=== PATIENT | female | born 1995 | race Caucasian/White ===

== ENCOUNTER 2024-06-08 07:30 | Emergency (ER) | payer BC, SELFPAY ==
[2024-06-08 07:32] VITALS: BP 139/89
[2024-06-08 07:43] VITALS: BMI 40.8
[2024-06-08 08:12] VITALS: BP 134/96
--- NOTE | 2024-06-08 08:18 | ED.GENMED ---
History of Present Illness
General
Chief Complaint: Breathing Problem
Source: patient
Time Seen by Provider: 06/08/24 07:50
History of Present Illness
History of Present Illness:
29-year-old female with past medical history of migraines presenting to the emergency department for evaluation of left-sided lower rib/back pain that began acutely and woke patient up from sleep bout 2-1/2 to 3 hours ago, slightly improved now but
pain is described to be an aching sensation, she with deep inspiration, worse when laying flat with no other symptoms. Patient notes that about a month ago she had COVID and since that time is still noting some fatigue and occasional shortness of
breath. She denies any fevers, chills, rigors, diaphoresis, exertional dyspnea, orthopnea, lower extremity edema, cough, hemoptysis or any other concerns. Patient does take a daily oral contraceptive. Denies cigarettes or tobacco use. Family
history noncontributory.
Past History
Past History
ED Past Medical History: Psychiatric and Other (Migraines)
ED Past Surgical History: None
Social History
Tobacco: Non-smoker
Alcohol: None
Drug: None
Personal:
Living: with family
Employment: Employed
Review of Systems
Review of Systems
All Other Systems: ROS reviewed and negative except as documented in HPI and ROS
Phy Exam
Physical Exam
Physical Exam:
GENERAL: Alert , in no apparent distress
HEAD: NCAT
EYE: clear conjunctiva
NECK: Supple.
ENT: mmm.
CARDIAC: HR between 98-110bpm, regular, no murmur
LUNGS: Clear breath sounds bilaterally, no acute respiratory distress, no wheezes/rales/rhonchi
ABDOMEN: Soft, without focal tenderness, no r/g, no cvat
NEUROLOGICAL: Alert and oriented
SKIN: Warm and dry, skin intact.
MUSCULOSKELETAL: No edema, well perfused.
PSYCH: Normal and appropriate interaction.
Scores
Heart Failure Risk
Heart Failure Risk Score: Not Applicable
Heart Score for Chest Pain Patients
STEMI patient?: No
History: Slightly or Non-Suspicious
ECG: Normal
Age: </= 45 years
Risk Factors: No Risk Factors
Troponin: </= Normal Limit
Heart Score for Chest Pain Patients: 0
Heart Score Risk: 2.5% MACE over next 6 weeks
Withdrawal Assessment of Alcohol
Withdrawal Assessment Completed?: Not applicable
Course
Orders/Labs/Results
Orders:
Orders
06/08/24 07:59
Test Result ONCE
06/08/24 08:00
Electrocardiogram (*1) Urgent
Reason for Study: Chest Pain
CT Chest Pe Study Urgent
Comment:
Reason For Exam: pleurisy, recent covid, tachy
EKG- Treatment ONCE
06/08/24 09:02
Urinalysis Reflex To Culture Urgent
Date Specimen was Collected: 06/08/24
Time Specimen was Collected: 08:55
06/08/24 09:04
Complete Blood Count/With Diff Urgent
06/08/24 09:07
Basic Metabolic Panel Urgent
HCG, Serum Qualitative Screen Urgent
Lipase Urgent
06/08/24 09:23
Troponin I Urgent
Abnormal Lab Results
06/08/24
09:04
WBC 11.3 H 10^3/uL
(4.8-10.8)
MPV 10.9 H fL
(7.4-10.4)
Absolute Neuts (auto) 6.8 H 10^3/uL
(1.4-6.5)
Absolute Lymphs (auto) 3.6 H 10^3/uL
(1.2-3.4)
06/08/24 09:04
06/08/24 09:07
Vital Signs
Initial and Last Documented VS:
Initial Vital Signs
Temp Pulse Resp BP Pulse Ox
98.9 F 106 18 139/89 97
06/08/24 07:32 06/08/24 07:32 06/08/24 07:32 06/08/24 07:32 06/08/24 07:32
Last Documented Vital Signs
Temp Pulse Resp BP Pulse Ox
98.9 F 83 14 92/61 96
06/08/24 07:32 06/08/24 10:15 06/08/24 10:15 06/08/24 11:14 06/08/24 11:16
MDM/Problems Addressed
Differential Diagnosis Includes:
Musculoskeletal etiology, PE, given age and lack of risk factors less concern for ACS, pneumonia, given the flank pain kidney stone/renal/ureteral colic considered however less likely given patient is also feeling the pain anteriorly underneath her
rib cage
MDM/Problems Addressed:
29-year-old female presenting to the emergency department for evaluation of sudden onset left-sided back/rib pain radiating to the front just underneath her rib cage, symptoms now a little bit improved although still present. Exacerbated with deep
inspiration as well as when laying flat. Had COVID about a month ago. Also takes oral contraceptives. Will CTA chest to rule out PE. Will check labs, EKG and urine. Patient declining anything for symptoms at this time.
*Radiology
Radiology exam reviewed: radiology read reviewed
*Pulse Oximetry
Patient hypoxic: no
*Steam Hand Interpretation
Rate: tachycardiac
Rhythm: sinus
*Critical Care Note
Total Time (30-74mins, 75-104mins- exclusive of procedures): Not Applicable
Patient Management
Escalation/DeEscalation of care consider admission/obs:
Patient CT scan is without any acute pathologies. Her labs are all unremarkable. I suspect pleurisy is the most likely diagnosis. NSAIDs/Tylenol as needed for pain. Discussed return precautions to the ER with patient who is agreeable with this
plan. Stable for discharge home.
ED Attending Note
-
Portions of this chart may have been created with voice recognition software.� Occasional wrong word or��sound alike� substitutions may have occurred due to the inherent limitations of voice recognition software.
Discharge Plan
Departure
Patient Disposition: Home (Routine Discharge)
Date of Disposition: 06/08/24
Time of Disposition: 11:19
Patient with high blood pressure during this ER visit?: Yes
Discharge Problem:
Pleurisy
Instructions: Pleuritic Chest Pain (DC)
Prescriptions:
No Action
bupropion HCl [Wellbutrin SR] 150 mg Tablet Sustained-Release 12 Hr
150 mg PO DAILY
naltrexone 50 mg Tablet
10 mg PO DAILY
sertraline [Zoloft] 100 mg Tablet
150 mg PO DAILY
drospirenone-ethinyl estradiol [Vestura (28)] 3-0.02 mg Tablet
1 tab PO DAILY
Referrals:
UNKNOWN - PT DOES,NOT KNOW [Family Provider] -
Interventions
Interventions:
*Risk Screen - Suicide Last Done: 06/08/24 07:42
*Neglect/Abuse Screening Last Done: 06/08/24 07:42
ED- Fall Risk Assessment Last Done: 06/08/24 07:48
*ED COVID-19 Vaccine History Last Done: 06/08/24 07:43
*Nursing Disposition Last Done: 06/08/24 11:35
ED- Cardiac Assessment Last Done: 06/08/24 07:48
ED- Pulmonary Assessment Last Done: 06/08/24 07:48
Discharge Date and Time
Discharge Date/Time: 06/08/24 11:35
Print Language: ROMANIAN
[2024-06-08 09:13] LABS: % Basophils 0.4 % (0-2); % Eosinophils 3.4 % (0-6); % Immature Granulocytes 0.3 % (0-0.5); % Lymphocytes 31.8 % (20.5-51.1); % Monocytes 4.1 % (1.7-9.3); Absolute Eosinophils 0.4 10^3/uL (0-0.7); Absolute Lymphocytes 3.6 10^3/uL (1.2-3.4); Absolute Monocytes 0.5 10^3/uL (0.1-0.6); Absolute Neutrophils 6.8 10^3/uL (1.4-6.5); Hematocrit 38.1 % (37.0-47.0); Hemoglobin 13.3 g/dL (12.0-16.0); Mean Corp Hgb Conc. 34.9 g/dL (33.0-37.0); Mean Corpuscular Hgb 28.7 pg (27.0-31.0); Mean Corpuscular Volume 82.1 fL (81.0-99.0); Mean Platelet Volume 10.9 fL (7.4-10.4); Nucleated Red Blood Cells % 0 %; Platelet Count 357 10^3/uL (130-400); Red Blood Cell Count 4.64 10^6/uL (4.20-5.40); Red Cell Dist. Width 13.2 % (11.5-14.5); White Blood Cell Count 11.3 10^3/uL (4.8-10.8)
[2024-06-08 09:27] LABS: Urine Albumin Negative (Neg - Trace); Urine Bilirubin Negative (Negative); Urine Character Clear (Clear); Urine Color Yellow; Urine Glucose Negative (Negative); Urine Ketone Negative (Negative); Urine Leukocyte Negative (Negative); Urine Nitrite Negative (Negative); Urine Occult Blood Negative (Negative); Urine Urobilinogen Negative (Neg - 1+); Urine pH 6.5 (5.0-9.0)
[2024-06-08 09:27] LABS: HCG, Serum Qualitative Screen Negative
[2024-06-08 09:41] LABS: Blood Urea Nitrogen 10 mg/dl (7-17); Estimated Creatinine Clearance 101 ml/min; Glucose 81 mg/dl (70-99); eGFR > 60.00
[2024-06-08 09:42] LABS: Calcium 9.6 mg/dl (8.4-10.2); Carbon Dioxide 23 mmol/L (22-30); Chloride 105 mmol/L (98-107); Lipase 83 U/L (23-300); Sodium 139 mmol/L (135-145)
[2024-06-08 09:56] LABS: Troponin I < 0.012 ng/ml
[2024-06-08 10:00] VITALS: BP 116/75
[2024-06-08 11:14] VITALS: BP 92/61
== END 2024-06-08 11:35 | disposition home or self-care (01) ==
LOC: EMR 07:30
PROVIDERS: Physician Assistant Medical; EMERGENCY PHYSICIAN Student in an Organized Health Care Education/Training Program
DX: R09.1 Pleurisy (principal); R03.0 Elevated blood-pressure reading, without diagnosis of hypertension; G43.909 Migraine, unspecified, not intractable, without status migrainosus
CPT/HCPCS: 99285; 71275; 80048; 81003; 83690; 84484; 84703; 85025; 93005; Q9967

== ENCOUNTER 2024-11-21 18:34 | Emergency (ER) | payer BC, SELFPAY ==
[2024-11-21 18:36] VITALS: BP 147/90
[2024-11-21 19:03] LABS: % Basophils 0.3 % (0-2); % Eosinophils 2.3 % (0-6); % Immature Granulocytes 0.3 % (0-0.5); % Lymphocytes 29.7 % (20.5-51.1); % Monocytes 3.9 % (1.7-9.3); % Neutrophils 63.5 % (42.2-75.2); Absolute Eosinophils 0.3 10^3/uL (0-0.7); Absolute Monocytes 0.5 10^3/uL (0.1-0.6); Absolute Neutrophils 8.5 10^3/uL (1.4-6.5); Hemoglobin 12.7 g/dL (12.0-16.0); Mean Corp Hgb Conc. 34.3 g/dL (33.0-37.0); Mean Corpuscular Hgb 28.9 pg (27.0-31.0); Mean Corpuscular Volume 84.1 fL (81.0-99.0); Mean Platelet Volume 9.7 fL (7.4-10.4); Nucleated Red Blood Cells % 0 %; Platelet Count 390 10^3/uL (130-400); Red Cell Dist. Width 13.5 % (11.5-14.5); White Blood Cell Count 13.3 10^3/uL (4.8-10.8)
[2024-11-21 19:15] LABS: ALT (SGPT) 27 U/L (0-35); AST (SGOT) 28 U/L (14-36); Albumin 3.7 g/dl (3.5-5.0); Alkaline Phosphatase 91 U/L (38-126); Blood Urea Nitrogen 12 mg/dl (7-17); Calcium 9.9 mg/dl (8.4-10.2); Carbon Dioxide 26 mmol/L (22-30); Chloride 106 mmol/L (98-107); Glucose 95 mg/dl (70-99); Lipase 93 U/L (23-300); Potassium 4.2 mmol/L (3.5-5.1); Sodium 140 mmol/L (135-145); Total Bilirubin 0.4 mg/dl (0.2-1.3); Total Protein 7.1 g/dl (6.3-8.2); eGFR > 60.00
[2024-11-21 19:19] LABS: COVID-19 Antigen Negative (Negative)
[2024-11-21 19:25] LABS: HCG, Serum Qualitative Screen Negative
[2024-11-21 21:57] VITALS: BP 135/92; BMI 36.9
[2024-11-21 22:00] VITALS: BP 126/85
--- NOTE | 2024-11-21 22:15 | ED.GENMED ---
History of Present Illness
General
Chief Complaint: Rectal Bleeding
Source: patient and spouse
Exam Limitations: none
Time Seen by Provider: 11/21/24 21:50
Nursing documentation reviewed up to this point in time: agreed with
History of Present Illness
History of Present Illness:
29-year-old female with anxiety sleep apnea bruxism headaches, presents with multiple complaints she has had some headaches dizziness, mild nausea diarrhea she had a tick bite on her arm a few weeks ago, has been sleeping great, tends to get
headaches related to her sleep apnea, no abdominal pain no fevers, has been having some bloody stool today also has some palpitations
Past History
Past History
ED Past Medical History: Psychiatric and Other (Migraines)
ED Past Surgical History: None
Social History
Tobacco: Non-smoker
Alcohol: None
Drug: None
Personal:
Living: with family
Employment: Employed
Review of Systems
Review of Systems
All Other Systems: Not applicable
Constitutional: Reports fatigue; Denies fever
EENT: Reports no symptoms
Respiratory: Reports no symptoms
Cardiac: Reports palpitations; Denies chest pain, diaphoresis or syncope
ABD/GI: Reports nausea, diarrhea and bloody stools
: Reports no symptoms
Neurological: Reports dizzy and headache
Hematologic/Lymphatic: Reports no symptoms
Psychiatric: Reports anxiety
Phy Exam
Physical Exam
Physical Exam:
Physical Exam
General: Nontoxic 29 female
Neck: Lips are more
Heart: Tachycardic
Lungs: no acute respiratory distress. clear bilaterally
Abdomen: Not tender
Neuro: alert and oriented. no focal neurological deficits
Skin: no rash
Psychiatric: well kept. interactive and cooperative
Extremities: no edema. no calf tenderness.
Course
Orders/Labs/Results
Orders:
Orders
11/21/24 18:41
Test Result ONCE
11/21/24 18:48
COVID-19 Antigen Urgent
Source: Nasal Swab
Complete Blood Count/With Diff Urgent
Comprehensive Metabolic Panel Urgent
HCG, Serum Qualitative Screen Urgent
Lipase Urgent
Lyme Progressive Urgent
Date Specimen was Collected: 11/21/24
Comment: ADD ON
Influenza A+B Rapid Molecular Urgent
ALEX Source: Nasal Swab
Specimen Description:
Date Specimen was Collected: 11/21/24
11/21/24 22:00
Urinalysis Reflex To Culture Urgent
Date Specimen was Collected: 11/21/24
Time Specimen was Collected: 21:59
Urine Microscopic Reflex Cult Urgent
11/21/24 22:09
Add On- LAB Urgent
Tests Added?: lyme progressive
0.9% Sodium Chloride 1000 ml [Nss] 1,000 ml IV BOLUS
11/21/24 22:10
Diphenhydramine [Benadryl] 25 mg IV NOW STA
Ondansetron Injectable [Zofran] 4 mg IV NOW STA
11/21/24 22:18
Electrocardiogram (*1) Urgent
Reason for Study: Palpitations
EKG- Treatment ONCE
11/21/24 22:26
Diphenhydramine [Benadryl] 25 mg PO NOW STA
Abnormal Lab Results
11/21/24 11/21/24
18:48 22:00
WBC 13.3 H 10^3/uL
(4.8-10.8)
Absolute Neuts (auto) 8.5 H 10^3/uL
(1.4-6.5)
Absolute Lymphs (auto) 4.0 H 10^3/uL
(1.2-3.4)
Ur Occult Blood Reflex 2+ A
(Negative)
Urine Bacteria (Reflex) Few A
(Negative)
Urine Albumin (Reflex) 1+ A
(Neg - Trace)
11/21/24 18:48
11/21/24 18:48
Vital Signs
Initial and Last Documented VS:
Initial Vital Signs
Temp Pulse Resp BP Pulse Ox
99.1 F 113 18 147/90 96
11/21/24 18:36 11/21/24 18:36 11/21/24 18:36 11/21/24 18:36 11/21/24 18:36
Last Documented Vital Signs
Temp Pulse Resp BP Pulse Ox
98.7 F 113 18 126/85 98
11/21/24 22:06 11/21/24 18:36 11/21/24 18:36 11/21/24 22:00 11/21/24 22:02
MDM/Problems Addressed
Differential Diagnosis Includes:
Dehydration electrolyte abnormality headache related sleep apnea, tick bite with normal platelet count no thrombocytopenia no bull's-eye type rash
MDM/Problems Addressed:
Dizziness headache diarrhea palpitations tick bite
Chronic conditions affecting care:
Sleep apnea anxiety bruxism
Acute Exacerbation and/or Progression of Chronic Illness:
Sleep apnea anxiety bruxism
*Critical Care Note
Total Time (30-74mins, 75-104mins- exclusive of procedures): Not Applicable
Update Note
Update Note:
1030 update patient would like p.o. not IV meds, Lyme titers been added
Urinalysis noted looks like contaminated specimen
Patient appears improved, multiple questions about passing blood in her stool see if she has a hemorrhoid, also wondering about POTS syndrome we will give her referral to cardiology
Rectal same completed with the right RN small external hemorrhoid at 12:00 minimal pain no obvious fissure no bleeding
Reviewed with patient we will give her some cortisone cream, have her follow-up with colorectal
ED Attending Note
-
Portions of this chart may have been created with voice recognition software.� Occasional wrong word or��sound alike� substitutions may have occurred due to the inherent limitations of voice recognition software.
Discharge Plan
Departure
Patient Disposition: Home (Routine Discharge)
Date of Disposition: 11/21/24
Time of Disposition: 23:37
Patient with high blood pressure during this ER visit?: No
Condition: Good
Discharge Problem:
Heart palpitations, Bloody stool
Instructions: Hemorrhoids (DC), Bloody Stools, Adult (DC), Palpitations ED, Overview of heart arrhythmias
Prescriptions:
New
hydrocortisone acetate [Anusol-HC] 25 mg suppository
25 mg VT DAILY PRN (Reason: hemorrhoids) Qty: 12 0RF
No Action
bupropion HCl [Wellbutrin SR] 150 mg Tablet Sustained-Release 12 Hr
150 mg PO DAILY
naltrexone 50 mg Tablet
10 mg PO DAILY
sertraline [Zoloft] 100 mg Tablet
150 mg PO DAILY
drospirenone-ethinyl estradiol [Vestura (28)] 3-0.02 mg Tablet
1 tab PO DAILY
Referrals:
Kenroy Alamo MD [Active] - Next open appointment
Bernie Deleon PA [Family Provider] -
Amadeo Reynaga MD [Active] - Next open appointment
Interventions
Interventions:
*Risk Screen - Suicide Last Done: 11/21/24 18:39
*General Assessment Last Done: 11/21/24 18:39
*Neglect/Abuse Screening Last Done: 11/21/24 18:39
*ED- Fall Risk Assessment Last Done: 11/21/24 22:02
*ED COVID-19 Vaccine History Last Done: 11/21/24 18:39
[id number] Assessment Last Done: 11/21/24 22:02
ED- Cardiac Assessment Last Done: 11/21/24 22:02
ED- Pulmonary Assessment Last Done: 11/21/24 22:02
Discharge Date and Time
Print Language: INDONESIAN
[2024-11-21 22:25] LABS: Urine Albumin 1+ (Neg - Trace); Urine Bilirubin Negative (Negative); Urine Character Clear (Clear); Urine Color Yellow; Urine Glucose Negative (Negative); Urine Ketone Negative (Negative); Urine Leukocyte Negative (Negative); Urine Nitrite Negative (Negative); Urine Occult Blood 2+ (Negative); Urine Specific Gravity 1.015 (<1.030); Urine Urobilinogen Negative (Neg - 1+)
[2024-11-21] MEDS: BENADRYL 25 MG PO (22:29)
[2024-11-21 22:59] LABS: Urine Bacteria Few (Negative); Urine Red Blood Cell 0-2 /HPF (0-2); Urine Squamous Cell >30 /LPF (Few); Urine White Cell 0-2 /HPF (0-5)
[2024-11-24 11:53] LABS: Lyme Antibody Screen, EIA Negative (Negative)
== END 2024-11-22 00:11 | disposition home or self-care (01) ==
LOC: EMR 18:34
PROVIDERS: Emergency Medicine; EMERGENCY PHYSICIAN Emergency Medicine; FAMILY PHYSICIAN Physician Assistant Medical
DX: R00.2 Palpitations (principal); K92.1 Melena; F41.9 Anxiety disorder, unspecified; G47.30 Sleep apnea, unspecified; Z11.52 Encounter for screening for COVID-19
CPT/HCPCS: 99284; 80053; 81003; 81015; 83690; 84703; 85025; 86618; 87502; 87811; 93005